=== PATIENT | female | born 1990 | race Caucasian/White ===

== ENCOUNTER 2023-12-13 12:27 | Emergency (ER) | payer BC, SELFPAY ==
[2023-12-13] VITALS (27 sets, daily range): BP systolic 107–146; BP diastolic 53–87; PULSE 38–72; RESP 9–25; TEMP 36.6; O2SAT 91–100
--- NOTE | ~2023-12-13 | CT_ITS ---
EXAMINATION: CT abdomen pelvis w con DATE: 12/13/2023 16:30 INDICATION: epigastric pain TECHNIQUE: Computed tomography (CT) of the abdomen and pelvis was performed with 100 mL Omnipaque-350 intravenous contrast. Automated exposure control and iterative reconstruction technique were employe d. The dose-length product was 257.92 mGy-cm. COMPARISON: None. FINDINGS: Lower thorax: Unremarkable Liver: Mildly enlarged. Diffusely low density liver parenchyma with heterogeneous enhancement. Peripo rtal edema. Feel gallbladder no stones. Mild wall edema/pericholecystic fluid. Biliary/Gallbladder: Gallbladder is normal. No bile duct dilation. Pancreas: Mild atrophy. Spleen: Normal. Adrenals:No mass. Kidneys: Delayed nephrogram on the right. Mild right hydronephrosis. No suspicious mass. The left kid joseph is normal. GI tract: No small or large bowel dilation. Status post appendectomy. Mesentery/Peritoneum: Mild mesenteric edema. No ascites, mass, or free air. Retroperitoneum: No mass. Pelvis: Pelvic organs are within normal limits. Small volume free pelvic fluid. Soft Tissues: Soft tissues and body wall unremarkable. Bones: No acute osseous finding. IMPRESSION: Mild hepatomegaly. Hepatic steatosis with heterogeneous liver enhancement, may reflect hepatitis or c irrhosis. Nonspecific periportal edema. Pericholecystic fluid/wall thickening, nonspecific in the setting of the above-mentioned liver findin gs. Correlate with biliary labs. Delayed right nephrogram with mild right hydronephrosis. No obstructing stone or mass detected. Corre late with urinalysis. Mild mesenteric edema. Reviewed, dictated and finalized at location K. IMPRESSION: Mild hepatomegaly. Hepatic steatosis with heterogeneous liver enhancement, may reflect hepatitis or cirrhosis. Nonspecific periportal edema. Pericholecystic fluid/wall thickening, nonspecific in the setting of the above- mentioned liver findings. Correlate with biliary labs. Delayed right nephrogram with mild right hydronephrosis. No obstructing stone o r mass detected. Correlate with urinalysis. Mild mesenteric edema.
--- NOTE | 2023-12-13 14:59 | PC.NURSE ---
patient unsure of time of last oral intake - had breakfast without issue sometime this morning
[2023-12-13] MEDS: MORPHINE SULFATE (*CRX) 4 MG/ML INJ IV PUSH ×2 (15:13→18:15)
[2023-12-13] MEDS: ONDANSETRON INJ 4 MG/2 ML VIAL IV PUSH (15:13)
[2023-12-13] MEDS: SODIUM CHLORIDE 0.9% IV 1,000 ML 999 ML IV CONT ×2 (15:14→18:14)
--- NOTE | 2023-12-13 15:25 | ECG_ITS ---
Test Date: 2023-12-13 15:30:43 Measurements Intervals [place] Rate: 38 P: 0 [place]: 0 QRS: 87 QRSD: 96 T: 76 QT: 542 QTc: 434 Interpretive Statements JUNCTIONAL BRADYCARDIA No previous ECG available for comparison Electronically Signed On 12-14-2023 10:32:39 CDT by Mainor Batista M.D.
[2023-12-13 15:27] LABS: Basophils Percent Auto 0.3 % (0.2-1.2); Hematocrit 35.5 % (37.0-47.0); Hemoglobin 12.9 g/dL (12.0-15.0); Immature Granulocyte Absolute 0.04 K/mm3 (0.00-0.031); Immature Granulocyte Percent A 0.4 % (0-0.5); Lymphocytes Absolute Auto 0.95 K/mm3 (0.9-3.2); Lymphocytes Percent Auto 10.1 % (18.3-44.2); Mean Corpuscular HGB Conc 36.3 g/dl (32-36); Mean Corpuscular Hemoglobin 36.1 pg (26-34); Mean Corpuscular Volume 99.4 fl (80-100); Mean Platelet Volume 10.9 fl (7.4-10.4); Monocytes Absolute Auto 0.5 K/mm3 (0.1-0.6); Monocytes Percent Auto 4.8 % (2.6-8.5); Neutrophils Absolute Auto 7.9 K/mm3 (1.3-6.7); Neutrophils Percent Auto 84.4 % (45.5-73.1); Platelet Count Result 225 k/mm3 (150-375); Red Blood Count 3.57 M/mm3 (4.2-5.4); Red Cell Distribution Width 11.9 % (11.5-14.5); White Blood Count 9.4 K/mm3 (4.5-10.0)
[2023-12-13 15:36] LABS: Alanine Aminotransferase 18 U/L (6-35); Albumin Level 4.2 g/dL (3.5-5.1); Alkaline Phosphatase 53 U/L (38-126); Anion Gap 11 mmol/L (4-12); Aspartate Amino Transferase 23 U/L (14-36); Bilirubin,Total 1.5 mg/dL (0.2-1.3); Blood Urea Nitrogen 12 mg/dL (7-17); Calcium 9.5 mg/dL (8.4-10.2); Carbon Dioxide 21 mmol/L (22-30); Chloride 106 mmol/L (98-107); Estimated CRCL calculation 80 ml/min; Estimated Glomerular Filt Rate > 60; Glucose 136 mg/dL (65-110); Lipase 26 U/L (23-300); Sodium 138 mmol/L (137-145)
[2023-12-13 15:37] LABS: INR 1.1; Prothrombin Time 14.5 Seconds (11.1-14.7)
[2023-12-13 15:38] LABS: Partial Thromboplastin Time 23.8 Seconds (22.3-36.8)
[2023-12-13 15:46] LABS: BEDSIDEPREGUCG Negative
[2023-12-13 15:57] LABS: Add Urine Microscopic? YES; Appearance Urine Cloudy (Clear); Bacteria Urine 1+ /hpf; Bilirubin Urine Negative (Negative); Blood Urine 3+ (Negative); Color Urine Yellow (Yellow); Glucose Urine UA Negative (Negative); Ketones Urine 4+ mg/dL (Negative); Leukocyte Esterase Ur Trace LEU/UL (Negative); Nitrate Urine Negative (Negative); Non Pathogenic Casts 0-2; Protein Urine 1+ mg/dL (Negative); RBC Urine >100 /hpf (0-2); Specific Grav Ur 1.023 (1.001-1.035); Squamous Epithelial Cell Urine Few /hpf (Few)
--- NOTE | 2023-12-13 17:29 | ED.ABDPAIN ---
HPI - Abdominal Pain General Chief Complaint: Abdominal Pain Stated Complaint: abd pain Time Seen by Provider: 12/13/23 14:46 History of Present Illness HPI narrative: Patient is a 33-year-old female who presents ER with abdominal pain. Began this morning. Upper abdomen radiating throughout. Associated with nausea vomiting. Denies fevers or chills or sweats. No known sick contacts. She has had no diarrhea. No urinary frequency urgency or dysuria. No history of kidney stones. Denies history of pancreatitis or alcohol abuse. Patient does have history of cervical cancer the past. She is not requiring any additional treatment at this time. Related Data Allergies Allergy/AdvReac Type Severity Reaction Status Date / Time No Known Allergies Allergy Verified 12/13/23 15:12 Review of Systems Review of Systems: All systems reviewed & are unremarkable except as noted in HPI and below Constitutional: Constitutional: Denies chills, Reports fatigue and Denies fever(s) ENT: Reports system reviewed and no additional complaints, except as documented Cardiovascular: Cardiovascular: Reports no additional cardiovascular complaints Respiratory: Respiratory: Reports no additional respiratory complaints Gastrointestinal: Gastrointestinal: Reports abdominal pain, Denies diarrhea, Reports nausea and Reports vomiting Genitourinary: Genitourinary: Reports no additional female genitourinary complaints PMFSH Past Medical History Medical History (Updated 12/13/23 @ 20:22 by Ashu Garcia MD) Cervical cancer Surgical History Surgical History (Updated 12/13/23 @ 17:33 by Ashu Garcia MD) H/O LEEP Exam Narrative: GENERAL: fatigued-appearing, well-nourished, and in no acute distress. HEAD: Normocephalic, atraumatic. ENT: Mucous membranes moist. NECK: Supple. CHEST: Clear to auscultation. No respiratory distress. HEART: bradycardic and regular. Normal peripheral pulses. ABDOMEN: Soft, tender palpation right upper quadrant and epigastrium with guarding, nondistended. EXTREMITIES: Normal range of motion. No edema. SKIN: Warm, dry, no rash. NEURO: Alert and oriented x3. PSYCH: Normal mood and affect. Course Course Emergency Course: Patient resting comfortably after 2 L of fluid and some morphine for pain. She has also had Zofran and promethazine for antinausea. Her hepatic panel came back negative. Her urinalysis has 6-10 white blood cells with greater than 100 red blood cells as well as trace leukocyte esterase and 1+ bacteria. She reports some slight burning when she urinates that just started. She will be placed on oral antibiotic. She feels comfortable being discharged home. I did discuss the imaging and lab results with GI, is felt this may represent enteritis or food borne illness. The patient did have bradycardia while at rest however she does not seem to be symptomatic as she is keenly alert. When she begins talking her heart rate goes up into the 60s and she has normal heart rate with ambulation. No lightheadedness or shortness of breath. Vital Signs Vital signs: Vital Signs Temperature 97.9 F 12/13/23 12:27 Pulse Rate 70 12/13/23 12:27 Respiratory Rate 16 12/13/23 12:27 Blood Pressure 107/53 L 12/13/23 12:27 Pulse Oximetry 98 12/13/23 12:27 Temperature 97.9 F 12/13/23 15:00 Pulse Rate 38 L 12/13/23 17:45 Respiratory Rate 11 L 12/13/23 17:45 Blood Pressure 146/87 H 12/13/23 16:00 Pulse Oximetry 97 12/13/23 17:45 MDM - Abdominal Pain Lab Data 12/13/23 15:19 12/13/23 15:19 Labs: Lab Results 12/13/23 12/13/23 12/13/23 Range/Units 15:19 15:42 15:44 WBC 9.4 (4.5-10.0) K/mm3 RBC 3.57 L (4.2-5.4) M/mm3 Hgb 12.9 (12.0-15.0) g/dL Hct 35.5 L (37.0-47.0) % MCV 99.4 (80-100) fl MCH 36.1 H (26-34) pg MCHC 36.3 H (32-36) g/dl RDW 11.9 (11.5-14.5) % Plt Count 225 (150-375) k
[2023-12-13 17:54] LABS: Hepatitis B Surface Antigen Negative (Negative)
[2023-12-13 18:00] LABS: HAV RESULT Negative (Negative); Hepatitis B Core IgM Result Negative (Negative)
[2023-12-13 18:13] LABS: Hepatitis B Surface Anti Res Positive; Hepatitis C Virus Antibody Negative (Negative)
[2023-12-13] MEDS: PROMETHAZINE HCL 25 MG/ML AMPUL 12.5 MG IV PUSH (18:14)
[2023-12-13] MEDS: POTASSIUM CHLORIDE 20 MEQ ER TABLET 40 MEQ PO (18:14)
== END 2023-12-13 20:45 | disposition home or self-care (01) ==
PROVIDERS: Emergency Provider Emergency Medicine
DX: K52.9 Noninfective gastroenteritis and colitis, unspecified (principal); E87.6 Hypokalemia; N39.0 Urinary tract infection, site not specified; Z85.41 Personal history of malignant neoplasm of cervix uteri; R00.1 Bradycardia, unspecified; K76.0 Fatty (change of) liver, not elsewhere classified; R16.0 Hepatomegaly, not elsewhere classified; N13.30 Unspecified hydronephrosis
CPT/HCPCS: 36415; 74177; 80053; 80074; 81001; 81025; 83690; 85025; 85610; 85730; 86706; 87077; 87086; 87088; 87181; 93005; 96361; 96374; 96375; 96376; 99284; A9270; J2270; J2405; J2550; J7030; Q9967